=== PATIENT | male | born 1935 | race Caucasian/White ===

== ENCOUNTER 2016-02-09 10:33 | Emergency (ER) | payer MEDICARE ==
[2016-02-09 11:06] VITALS: BP 154/93
--- NOTE | 2016-02-09 11:35 | UC ---
Throat Pain/Nasal Ugo HPI - HPI Summary HPI Summary: complaint of non productive cough for the last week sunday night drinking a cup of tea and choken felt that fluid went down the wrong tube that night he woke up felt like he was shaking, chills yesterday cough has worsened hurts his chest when he coughs thinks he aspirated fluid and wants a chest x-ray feel achy when he is moving , headache denies nasal congestion took some aleve with some relief - History of Current Complaint Chief Complaint: UCRespiratory Stated Complaint: COUGH Time Seen by Provider: 02/09/16 11:29 Hx Obtained From: Patient - Allergies/Home Medications Allergies/Adverse Reactions: Allergies Allergy/AdvReac Type Severity Reaction Status Date / Time No Known Allergies Allergy Verified 02/09/16 11:04 Home Medications: Home Medications Cholecalciferol TAB* [Vitamin D TAB*] 1,000 unit PO DAILY 02/09/16 [History Confirmed 02/09/16] Lisinopril [Zestril 20 MG-] 20 mg PO DAILY 02/09/16 [History Confirmed 02/09/16] PMH/Surg Hx/FS Hx/Imm Hx Previously Healthy: Yes Cardiovascular History Of: Reports: Hypertension - Surgical History Surgical History: Yes Surgery Procedure, Year, and Place: prostectomy - Family History Known Family History: Negative: Cardiac Disease, Hypertension, Diabetes - Social History Occupation: Retired Lives: With Family Alcohol Use: Daily Alcohol Amount: with dinner Substance Use Type: None Smoking Status (MU): Former Smoker Type: Cigarettes Have You Smoked in the Last Year: No When Did the Patient Quit Smoking/Using Tobacco: 1970 Review of Systems Constitutional: Fever, Chills Skin: Negative ENT: Negative Respiratory: Cough Cardiovascular: Negative Gastrointestinal: Negative Genitourinary: Negative Motor: Negative Neurovascular: Negative Musculoskeletal: Negative Neurological: Negative Psychological: Negative All Other Systems Reviewed And Are Negative: Yes Physical Exam Triage Information Reviewed: Yes Appearance: No Pain Distress, Well-Nourished Vital Signs: Initial Vital Signs Temp 97.9 F 02/09/16 10:55 Pulse 74 02/09/16 10:55 Resp 16 02/09/16 10:55 BP 154/93 02/09/16 10:55 Pulse Ox 99 02/09/16 10:55 Vital Signs Reviewed: Yes Eyes: Positive: Conjunctiva Clear ENT: Positive: Pharynx normal, TMs normal. Negative: Nasal congestion Neck: Positive: No Lymphadenopathy Respiratory: Positive: Lungs clear, Normal breath sounds, No respiratory distress Cardiovascular: Positive: RRR, No Murmur, Pulses Normal Abdomen Description: Positive: Nontender, Soft Bowel Sounds: Positive: Present Musculoskeletal: Positive: No Edema Neurological: Positive: Alert Psychological Exam: Normal Skin Exam: Normal Throat Pain/Nasal Course/Dx - Course Course Of Treatment: exam completed. negative chest x-ray. treat symptoms of bronchitis followup with Dr Caballero PCP - Differential Dx/Diagnosis Differential Diagnosis/HQI/PQRI: Other - bronchitis, pneumonia, Provider Diagnoses: bronchitis Discharge - Discharge Plan Condition: Stable Disposition: HOME Prescriptions: Albuterol HFA INHALER* [Ventolin HFA Inhaler*] 2 puff INH Q4H PRN #1 mdi PRN Reason: Cough Spacer/Aerosol-Holding Chamber [Aerochamber Mv] 1 mis XX Q4HR #1 mis Patient Education Materials: Acute Bronchitis (ED), Bronchospasm (ED), How to Use a Metered-Dose Inhaler and a Spacer (ED) Referrals: Alden Caballero MD [Primary Care Provider] - Additional Instructions: Use your albuterol inhaler every 4-6 hours when needed for wheezing, shortness of breath or uncontrolled coughing. Increase fluids and rest Take acetaminophen or ibuprofen for fever or pain Please review your discharge instructions. If your symptoms do not improve please call your primary care provider or return to urgent care.
--- NOTE | 2016-02-09 12:19 | RAD ---
INDICATION: Cough and fever. COMPARISON: Comparison is made with a prior study from June 15, 2010. TECHNIQUE: Dual-energy PA and lateral views of the chest were obtained. FINDINGS: The heart is within normal limits in size. Mediastinal and hilar contours appear within normal limits. The lungs are hyperinflated. There is a small chronic infiltrate present at the right lung apex suggestive of pleural and parenchymal scarring. The lungs are otherwise clear. No pleural effusion is seen. IMPRESSION: NO EVIDENCE FOR ACUTE FINDING.
== END 2016-02-09 12:46 | disposition home or self-care (01) ==
LOC: UCEAST 10:33
DX: J40 Bronchitis, not specified as acute or chronic (principal); I10 Essential (primary) hypertension; Z87.891 Personal history of nicotine dependence
CPT/HCPCS: 71020; 99211; G0463

== ENCOUNTER 2023-03-22 16:47 | Observation (INO) ==
[2023-03-22 18:56] LABS: ABS Eosinophils 0.1 10^3/uL (0.0-0.5); ABS Lymphocytes 1.5 10^3/uL (1.0-4.8); ABS Monocytes 0.5 10^3/uL (0.0-1.1); ABS Neutrophils 3.4 10^3/uL (1.5-7.6); Eosinophil % 1.6 %; Hematocrit 35.8 % (38-53); Hemoglobin 12.2 g/dL (13.2-16.3); Lymphocyte % 27.4 %; Mean Corpuscular Hgb Conc 34.2 g/dL (31-36); Mean Corpuscular Volume 93.5 fL (80-97); Mean Platelet Volume 6.9 fL (7.5-11.2); Nucleated Red Blood Cells % 0.1 %/100WBC (0.0-0.8); Platelet Count 176 10^3/uL (150-450); Red Blood Count 3.83 10^6/uL (4.06-5.63); Red Cell Distribution Width 12.9 % (12-17); White Blood Count 5.5 10^3/uL (3.6-10.2)
[2023-03-22 19:12] LABS: ALT 11 U/L (7-52); AST 17 U/L (13-39); Albumin/Globulin Ratio 1.5 (1-3); Alkaline Phosphatase 47 U/L (35-149); Anion Gap 5 mmol/L (2-16); Blood Urea Nitrogen 21 mg/dL (6-24); C Reactive Protein < 1.00 mg/L (<8.01); CO2 Carbon Dioxide 33 mmol/L (22-32); Calcium 9.3 mg/dL (8.6-10.3); Chloride 102 mmol/L (101-111); Creatinine, Serum 1.45 mg/dL (0.67-1.17); Globulin 2.7 g/dL (2-4); Glucose 99 mg/dL (70-100); Potassium 4.7 mmol/L (3.5-5.0); Sodium 140 mmol/L (135-145); Total Bilirubin 0.5 mg/dL (0.2-1.0); Total Protein 6.7 g/dL (6.4-8.9); eGFR CKD-EPI 46.6 (>60)
[2023-03-22] MEDS: Iodixanol (CONTRAST) 320 MG/ML 100 ML SDV IV ONE (19:55)
[2023-03-22 20:33] LABS: Erythrocyte Sed Rate 11 mm/Hr (0-19)
[2023-03-22 23:01] LABS: HDL Cholesterol 37.2 mg/dL
[2023-03-22] MEDS: Enoxaparin 40 MG/0.4 ML SYR SUBCUT SCH (23:17)
[2023-03-22 23:19] LABS: TSH Ultra Thyroid Stim Horm 0.72 mcIU/mL (0.34-5.60)
[2023-03-23 13:51] VITALS: BP 123/73
== END 2023-03-23 16:22 | disposition home or self-care (01) ==
LOC: EDHOLD 16:47 → ED 16:47 → SUATTDRO 22:42 → MEDTELE 03-23 01:50
PROVIDERS: ADMIT Internal Medicine; ATTEND Internal Medicine